=== PATIENT | female | born 1965 | race Caucasian/White ===

== ENCOUNTER 2019-05-06 07:43 | Day surgery (SDC) | payer BC ==
[~2019-05-06 07:43] MED LIST: Lactated Ringers 1,000 ML IV SCH; Lidocaine 1%/Sod Bicarbonate in NS 8.4% 1 ML Syringe IDERM PRN; Sodium Chloride 0.9% 10 ML Syringe FLUSH PRN
[2019-05-06] MEDS ORDERED: Midazolam 1 MG/ML 2 ML SDV ONE (08:16)
[2019-05-06] MEDS ORDERED: fentaNYL 100 MCG/2 ML SDV ONE (08:17)
[2019-05-06] MEDS ORDERED: Propofol 200 MG/20 ML SDV ONE ×2 (09:23→09:35)
[2019-05-06] MEDS ORDERED: Ondansetron 4 MG/2 ML SDV ONE (09:38)
[2019-05-06 10:47] VITALS: BP 120/77
--- NOTE | 2019-05-06 15:26 | OR ---
DATE OF OPERATION: 05/06/2019 SURGEON: Froylan Alanis MD PREOPERATIVE DIAGNOSIS: Mucousy stools. POSTOPERATIVE DIAGNOSIS: 1. No evidence of inflammatory bowel disease. 2. Colon polyp and diverticulosis. OPERATION PERFORMED: Diagnostic colonoscopy with polypectomy. ANESTHESIA: Monitored anesthesia. FINDINGS: She had an excellent bowel prep. I found 1 diminutive polyp in the descending colon. She had some scattered sigmoid diverticulosis. I found no evidence of any inflammatory bowel disease. PATHOLOGY: Descending colon polyp. ESTIMATED BLOOD LOSS: Minimal. COMPLICATIONS: None. DISPOSITION: Stable at the end of the procedure. INDICATION: The patient presented to my office with change in bowel habits. She noted abdominal pain associated with mucous stools. She has no bleeding per rectum. She was offered a diagnostic colonoscopy. She was fully informed of the major risks, benefits, and alternatives. The risks include, but are not limited to perforation of the bowel, bleeding, the risks of anesthesia, the possibility of further surgery, and others. She gave informed consent. DESCRIPTION OF PROCEDURE: The patient was brought to the gastro suite and placed in the left lateral decubitus position. A digital rectal exam was performed. She was given monitored anesthesia. This was unremarkable. I introduced the colonoscope with copious lubrication into the rectum. I advanced the scope keeping the lumen in view at all times with gentle forward pressure. I reached the cecum and documented the cecum photographically. I slowly investigated the mucosa of the colon from the cecum back to the anus in an exam lasting 7 minutes. A thorough, careful examination demonstrated only a single polyp in the descending colon as well as some diverticulosis of the sigmoid. I found no ulcerations, no inflamed mucosa, no evidence of bleeding. At the end of the procedure, the scope was withdrawn. She had no complications and tolerated the procedure well. PLAN: My office will notify her as to the date of her next colonoscopy somewhere between 5 and 10 years. MMODAL /[id number]
== END 2019-05-06 10:45 | disposition home or self-care (01) ==
LOC: JD.SDS 07:43
PROVIDERS: ATTEND Surgery
DX: K63.5 Polyp of colon (principal); K57.30 Diverticulosis of large intestine without perforation or abscess without bleeding; Z80.0 Family history of malignant neoplasm of digestive organs; K58.9 Irritable bowel syndrome, unspecified; I10 Essential (primary) hypertension; E06.3 Autoimmune thyroiditis; E03.9 Hypothyroidism, unspecified; G47.30 Sleep apnea, unspecified; F41.9 Anxiety disorder, unspecified; Z79.899 Other long term (current) drug therapy; Z88.0 Allergy status to penicillin; Z88.5 Allergy status to narcotic agent; Z91.018 Allergy to other foods; Z98.890 Other specified postprocedural states
CPT/HCPCS: 45380; J2250; J2405; J2704; J3010; J7120; 00811

== ENCOUNTER 2019-05-13 11:47 | Emergency (ER) | payer BC ==
[2019-05-13 11:57] VITALS: BP 149/99
[2019-05-13] MEDS ORDERED: Sodium Chloride 0.9% 10 ML Syringe FLUSH PRN (12:34)
[2019-05-13] MEDS ORDERED: Diatrizoate Meglumine/Diatrizoate Sodium 37% 120 ML Bottle PO ONE (12:41)
[2019-05-13] MEDS ORDERED: Iopamidol 612 MG/ML 100 ML Bottle IVPUSH ONE (12:41)
[2019-05-13] MEDS ORDERED: Sodium Chloride 0.9% 10 ML Syringe FLUSH ONE (12:41)
--- NOTE | 2019-05-13 13:18 | EDM.PDOC ---
ED HPI GENERAL MEDICAL PROBLEM - General Chief Complaint: Abdominal Pain Stated Complaint: FEVER,ABDOMINAL PAIN Time Seen by Provider: 05/13/19 12:15 Source of Information: Reports: Patient, Old Records History Limitations: Reports: No Limitations - History of Present Illness INITIAL COMMENTS - FREE TEXT/NARRATIVE: 54-year-old female presents for evaluation and treatment of abdominal pain. she reports she had a routine colonoscopy with Dr. Alanis on May 06 at this hospital. States that it was unremarkable and she had one polyp that was biopsied. She states that it was otherwise an unremarkable colonoscopy. Since then she has had what she describes initially as heartburn. states that it's progressed into her abdomen and she has been experiencing cramping. Pain for the last few days has settled in the left lower quadrant. She reports associated symptoms of fevers and diaphoresis. She denies any nausea, vomiting, diarrhea or any blood in her stools. She has not passed out. She is continuing to pass gas. She denies any urinary symptoms. Patient has a history of IBS. States that she has flares in the past but these normally resolve with passing a bowel movement. Primary care provider is Eveline Aragon. Operative report from Dr. Alanis shows a postop diagnosis of colon polyp and diverticulosis. No evidence for IBD. - Related Data Allergies Allergy/AdvReac Type Severity Reaction Status Date / Time codeine Allergy Rash Verified 05/13/19 11:57 Penicillins Allergy Rash Verified 05/13/19 11:57 tree nut Allergy Diarrhea Verified 05/13/19 11:57 Home Meds: Home Meds Calcium Carbonate [Calcium] 1,500 mg PO DAILY 05/05/19 [History] Estrogens, Conjugated [Premarin Vaginal Crm] 1 dose VAG WESA 05/05/19 [History] LORazepam 0.25 - 0.5 mg PO BEDTIME PRN 05/05/19 [History] Levothyroxine Sodium [Synthroid] 100 mcg PO DAILY 05/05/19 [History] hydroCHLOROthiazide [Hydrochlorothiazide] 12.5 mg PO DAILY 05/05/19 [History] sulfaSALAzine 500 mg PO BID 05/05/19 [History] Levofloxacin [Levaquin] 750 mg PO DAILY #9 tablet 05/13/19 [Rx] metroNIDAZOLE [Flagyl] 500 mg PO Q8H #29 tab 05/13/19 [Rx] Past Medical History HEENT History: Reports: Impaired Vision, Other (See Below) Other HEENT History: dry mouth, excision/resection of mandible, wears glasses Cardiovascular History: Reports: Hypertension Respiratory History: Reports: Sleep Apnea Gastrointestinal History: Reports: Irritable Bowel Syndrome, Other (See Below) Other Gastrointestinal History: excessive flatus Genitourinary History: Reports: UTI, Recurrent FUR WEIGHER History: Reports: Spontaneous , Other (See Below) Other FUR WEIGHER History: vaginal atrophy, post menopausal, vaginal candidiasis, amenorrhea, vaginal dryness and vaginosis, vaginal itching Musculoskeletal History: Reports: Osteoporosis, RA Other Musculoskeletal History: right knee pain, joint pain, right elbow pain, tailbone injury Neurological History: Reports: Other (See Below) Other Neuro History: hand tremor Psychiatric History: Reports: Anxiety, Other (See Below) Other Psychiatric History: insomnia Endocrine/Metabolic History: Reports: Hypothyroidism Other Endocrine/Metabolic History: hashimotos Hematologic History: Reports: None Immunologic History: Reports: None Oncologic (Cancer) History: Reports: None Dermatologic History: Reports: Other (See Below) Other Dermatologic History: skin lesion - Past Surgical History Head Surgeries/Procedures: Reports: None HEENT Surgical History: Reports: Naso-Sinus Surgery, Tonsillectomy Cardiovascular Surgical History: Reports: None Respiratory Surgical History: Reports: None GI Surgical History: Reports: Colonoscopy Female Surgical History: Reports: None Endocrine Surgical History: Reports: Thyroidectomy Other Endocrine Surgeries/Procedures: partial thyroidectomy Neurological Surgical History: Reports: None Musculoskeletal Surgical History: Reports: None Oncologic Surgical History: Reports: None Dermatological Surgical History: Reports: None Social & Family History - Family History Cardiac: Reports: Other (See Below) Other Cardiac Family History: father had atrial valve replaced , rheumatic fever Musculoskeletal: Reports: RA Neurological: Reports: Dementia - Tobacco Use Smoking Status *Q: Never Smoker Second Hand Smoke Exposure: No - Caffeine Use Caffeine Use: Reports: None - Recreational Drug Use Recreational Drug Use: No ED ROS GENERAL - Review of Systems Review Of Systems: See Below Constitutional: Reports: Fever, Diaphoresis GI/Abdominal: Reports: Abdominal Pain (Left lower quadrant), Flatus. Denies: Bloody Stool, Diarrhea, Nausea, Vomiting : Reports: No Symptoms ED EXAM, GI/ABD - Physical Exam Exam: See Below Exam Limited By: No Limitations General Appearance: Alert, WD/WN, No Apparent Distress Throat/Mouth: Normal Inspection, Normal Voice, No Airway Compromise Respiratory/Chest: No Respiratory Distress, Lungs Clear, Normal Breath Sounds Cardiovascular: Normal Peripheral Pulses, Regular Rate, Rhythm, No Murmur GI/Abdominal Exam: Normal Bowel Sounds, Soft, No Distention, Tender (Left lower quadrant). No: Guarding, Rebound Neurological: Alert, Oriented, Normal Cognition Psychiatric: Normal Affect, Normal Mood Skin Exam: Warm, Dry, Normal Color Course - Vital Signs Last Recorded V/S: Last Vital Signs Temp 98.4 F 05/13/19 11:51 Pulse 89 05/13/19 11:51 Resp 14 05/13/19 11:51 BP 149/99 H 05/13/19 11:51 Pulse Ox 100 05/13/19 11:51 - Orders/Labs/Meds Orders: Active Orders 24 hr Category Date Time Status Peripheral IV Care [RC] . DIRECTED Care 05/13/19 12:35 Active Peripheral IV Insertion Adult [OM.PC] Routine Oth 05/13/19 12:34 Ordered Labs: Laboratory Tests 05/13/19 05/13/19 05/13/19 Range/Units 12:00 12:00 14:35 WBC 8.31 (3.98-10.04) K/mm3 RBC 4.48 (3.98-5.22) M/mm3 Hgb 13.8 (11.2-15.7) gm/L Hct 41.1 (34.1-44.9) % MCV 91.7 (79.4-94.8) fl MCH 30.8 (25.6-32.2) pg MCHC 33.6 (32.2-35.5) g/dl RDW Std Deviation 41.8 (36.4-46.3) fL Plt Count 302 (182-369) K/mm3 MPV 8.8 L (9.4-12.3) fl Neutrophils % (Manual) 58 (40-60) % Band Neutrophils % 0 (0-10) % Lymphocytes % (Manual) 30 (20-40) % Atypical Lymphs % 0 % Monocytes % (Manual) 6 (2-10) % Eosinophils % (Manual) 3 (0.7-5.8) % Basophils % (Manual) 2 H (0.1-1.2) Promyelocytes % 1 Platelet Estimate Adequate Plt Morphology Comment Normal RBC Morph Comment Normal Sodium 134 L (136-145) mEq/L Potassium 3.2 L (3.5-5.1) mEq/L Chloride 98 (98-107) mEq/L Carbon Dioxide 29 (21-32) mEq/L Anion Gap 10.2 (5-15) BUN 18 (7-18) mg/dL Creatinine 1.0 (0.55-1.02) mg/dL Est Cr Clr Drug Dosing 60.54 mL/min Estimated GFR (MDRD) 58 (>60) mL/min BUN/Creatinine Ratio 18.0 (14-18) Glucose 90 (74-106) mg/dL Calcium 9.8 (8.5-10.1) mg/dL Total Bilirubin 1.2 H (0.2-1.0) mg/dL AST 12 L (15-37) U/L ALT 25 (14-59) U/L Alkaline Phosphatase 79 (46-116) U/L C-Reactive Protein 7.3 H* (<1.0) mg/dL Total Protein 8.3 H (6.4-8.2) g/dl Albumin 3.9 (3.4-5.0) g/dl Globulin 4.4 gm/dL Albumin/Globulin Ratio 0.9 L (1-2) Urine Color Yellow (Yellow) Urine Appearance Clear (Clear) Urine pH 7.5 (5.0-8.0) Ur Specific [place] 1.010 (1.005-1.030) Urine Protein Negative (Negative) Urine Glucose (UA) Negative (Negative) Urine Ketones Negative (Negative) Urine Occult Blood Negative (Negative) Urine Nitrite Negative (Negative) Urine Bilirubin Negative (Negative) Urine Urobilinogen 0.2 (0.2-1.0) Ur Leukocyte Esterase Negative (Negative) Urine RBC Not seen (0-5) /hpf Urine WBC Not seen (0-5) /hpf Ur Epithelial Cells 0-5 (0-5) /hpf Urine Bacteria Not seen (FEW) /hpf Urine Mucus Not seen (FEW) /hpf Meds: Medications Discontinued Medications Generic Name Dose Route Start Last Admin Trade Name Freq PRN Reason Stop Dose Admin Diatrizoate Meglum/Diatrizoate Sod 90 ml 05/13/19 12:41 05/13/19 13:46 Gastrografin 37% PO 05/13/19 12:42 90 ml ONETIME ONE Administration Iopamidol 100 ml 05/13/19 12:41 05/13/19 13:46 Isovue-300 (61%) IVPUSH 05/13/19 12:42 100 ml ONETIME ONE Administration Levofloxacin 750 mg 05/13/19 14:58 05/13/19 15:08 Levaquin PO 05/13/19 14:59 750 mg NOW STA Administration Metronidazole 500 mg 05/13/19 14:58 05/13/19 15:08 Flagyl PO 05/13/19 14:59 500 mg ONETIME ONE Administration Metronidazole Confirm 05/13/19 15:11 Flagyl Administered 05/13/19 15:12 Dose 500 mg .ROUTE .STK-MED ONE Sodium Chloride 10 ml 05/13/19 12:34 05/13/19 12:53 Saline Flush FLUSH 10 ml ASDIRECTED PRN Administration Keep Vein Open Sodium Chloride 10 ml 05/13/19 12:41 05/13/19 13:47 Saline Flush FLUSH 05/13/19 12:42 10 ml ONETIME ONE Administration - Radiology Interpretation Free Text/Narrative:: CT abdomen and pelvis Technique: Multiple axial sections were obtained from above the dome of the diaphragm inferiorly through the pubic symphysis. Intravenous and oral contrast was utilized. Delayed images were obtained through the bladder. Comparison: No prior CT abdomen or pelvis exam is available. Findings: Small portion of the visualized lung bases show nothing acute. Two adjacent or bilobed cysts are identified within the upper right lobe of the liver measuring approximately 1.0 cm in combined measurement. No additional abnormality is appreciated within the liver. Spleen appears within normal limits. Adrenal glands show no nodule. Pancreas is within normal limits. Kidneys show symmetric contrast enhancement with no hydronephrosis or mass. Aorta shows mild atherosclerotic calcification without aneurysm. No retroperitoneal adenopathy is seen. Appendix is seen which is normal. Inflammatory change is noted around the left side of the colon. This inflammatory change is centered adjacent to a diverticuli. No free fluid collections of abscess are seen. Other sigmoid diverticuli are seen. No free air is seen. No pelvic mass or adenopathy is appreciated. Gallbladder contains no calcified gallstones. No bowel dilatation is seen. Impression: 1. Inflammatory change around a portion of the descending colon. Uncertain if this represents change from recent colonoscopy or represents change from diverticulitis as a diverticula is seen within this inflammatory change. Latter is felt most likely. Other diverticuli are seen within the sigmoid colon without additional inflammatory change. 2. Incidental cysts within the liver. 3. No additional abnormality is appreciated. - Re-Assessments/Exams Free Text/Narrative Re-Assessment/Exam: 05/13/19 14:48 Reviewed the labs and imaging with the patient. This is uncomplicated case of diverticulitis. She can be treated as an outpatient. the patient feels comfortable with this. I will prescribe her some Levaquin and Flagyl. Will discharge her home. Offered pain medication she declined. Recommend follow-up clinic. Discharge instructions as documented. Departure - Departure Time of Disposition: 15:02 Disposition: Home, Self-Care 01 Condition: Fair Clinical Impression: Diverticulitis - Discharge Information *PRESCRIPTION DRUG MONITORING PROGRAM REVIEWED*: No *COPY OF PRESCRIPTION DRUG MONITORING REPORT IN PATIENT SHAHLA: No Prescriptions: Levofloxacin [Levaquin] 750 mg PO DAILY #9 tablet metroNIDAZOLE [Flagyl] 500 mg PO Q8H #29 tab Instructions: Diverticulitis, [id number] Referrals: Eveline Aragon MEDIA INTERN [Primary Care Provider] - Forms: ED Department Discharge Additional Instructions: Take the antibiotic as prescribed. Levaquin 1 tab daily. You may start this medication tomorrow as you were given a dose here in the ED. Flagyl 1 tab every 8 hours. Both these medications are for 10 days. Follow-up with your primary care provider next week for recheck of your symptoms. Recommend clear fluids and a bland diet. Kidder diet recommendations include yogurt, bananas, soup broth, applesauce, toast etc. Please return to the ER for symptoms change or worsen. - My Orders Last 24 Hours: My Active Orders 05/13/19 12:34 Peripheral IV Insertion Adult [OM.PC] Routine 05/13/19 12:35 Peripheral IV Care [RC] . DIRECTED - Assessment/Plan Last 24 Hours: My Active Orders 05/13/19 12:34 Peripheral IV Insertion Adult [OM.PC] Routine 05/13/19 12:35 Peripheral IV Care [RC] . DIRECTED
--- NOTE | 2019-05-13 14:35 | CT ---
CT abdomen and pelvis Technique: Multiple axial sections were obtained from above the dome of the diaphragm inferiorly through the pubic symphysis. Intravenous and oral contrast was utilized. Delayed images were obtained through the bladder. Comparison: No prior CT abdomen or pelvis exam is available. Findings: Small portion of the visualized lung bases show nothing acute. Two adjacent or bilobed cysts are identified within the upper right lobe of the liver measuring approximately 1.0 cm in combined measurement. No additional abnormality is appreciated within the liver. Spleen appears within normal limits. Adrenal glands show no nodule. Pancreas is within normal limits. Kidneys show symmetric contrast enhancement with no hydronephrosis or mass. Aorta shows mild atherosclerotic calcification without aneurysm. No retroperitoneal adenopathy is seen. Appendix is seen which is normal. Inflammatory change is noted around the left side of the colon. This inflammatory change is centered adjacent to a diverticuli. No free fluid collections of abscess are seen. Other sigmoid diverticuli are seen. No free air is seen. No pelvic mass or adenopathy is appreciated. Gallbladder contains no calcified gallstones. No bowel dilatation is seen. Impression: 1. Inflammatory change around a portion of the descending colon. Uncertain if this represents change from recent colonoscopy or represents change from diverticulitis as a diverticula is seen within this inflammatory change. Latter is felt most likely. Other diverticuli are seen within the sigmoid colon without additional inflammatory change. 2. Incidental cysts within the liver. 3. No additional abnormality is appreciated. Diagnostic code #3
[2019-05-13] MEDS ORDERED: Levofloxacin 750 MG Tab PO STA (14:58)
[2019-05-13] MEDS ORDERED: metroNIDAZOLE 500 MG Tab PO ONE (14:58)
[2019-05-13] MEDS ORDERED: metroNIDAZOLE 500 MG Tab ONE (15:11)
== END 2019-05-13 15:22 | disposition home or self-care (01) ==
LOC: JD.ED 11:47
DX: K57.32 Diverticulitis of large intestine without perforation or abscess without bleeding (principal); I10 Essential (primary) hypertension; F41.9 Anxiety disorder, unspecified; E03.9 Hypothyroidism, unspecified; Z88.5 Allergy status to narcotic agent; Z88.0 Allergy status to penicillin; Z91.09 Other allergy status, other than to drugs and biological substances; Z79.899 Other long term (current) drug therapy
CPT/HCPCS: 36415; 74177; 80053; 81001; 85007; 85027; 86140; 99284; A9270; Q9963; Q9967

== ENCOUNTER 2019-05-14 00:44 | Emergency (ER) | payer BC ==
[2019-05-14 00:53] VITALS: BP 146/92
--- NOTE | 2019-05-14 00:59 | EDM.PDOC ---
ED HPI GENERAL MEDICAL PROBLEM - General Chief Complaint: General Stated Complaint: POSSIBLE ALLERGIC REACTION HERE YESTERDAY Time Seen by Provider: 05/14/19 00:58 Source of Information: Reports: Patient History Limitations: Reports: No Limitations - History of Present Illness INITIAL COMMENTS - FREE TEXT/NARRATIVE: 54-year-old female presents to the ED for evaluation of spinal allergy/adverse effects of medication. She was seen through the ED yesterday and CTs demonstrated a early diverticulitis of the superior descending colon. Of note the patient has undergone recent colonoscopy on May 06 with one polyp resected. There were numerous diverticular reported on the colonoscopy examination. Patient has no history of diverticulitis in the past. Had a normal white blood cell count but did have an elevated CRP at 7.3. She was thus started on metronidazole 500 mg 3 times a day and Levaquin 500 mg by mouth. She reports that she developed pressure in her throat with increased phlegm and a feeling of swelling of the uvula and the back of her throat. This created anxiety and she called the [place] ambulance personnel [place] They identified normal vital signs and with reassurance her vital signs improved. I she was tachycardic and mildly hypotensive on initial assessment. She also had diffuse numbness and tingling in her fingers and toes unclear if this is hyperventilation syndrome or peripheral neuropathy symptoms that sometimes can be associated with metronidazole use. She did have significant nausea when taking the medication yesterday as well. She has no rashes and I do not feel her current symptomatology is related to Levaquin. She may well have adverse effects to metronidazole. Sensory is reluctant to take any more medication in this regard I will change it to clindamycin 300 mg 3 times a day for 6 days and she will discontinue the metronidazole. Onset: Sudden Onset Date: 05/13/19 Onset Time: 22:30 Duration: Minutes: Location: Reports: Neck (Throat pressure discomfort like he was closing in with increased phlegm.), Other (Views numbness and tingling in hands toes and fingers.) Quality: Reports: Pressure Severity: Moderate Improves with: Reports: Other ([place] ambulance crew.) Worsens with: Reports: None Context: Reports: Other (Possible adverse effects of medication started yesterday I metronidazole 500 mg 3 times a day and Levaquin 500 milligrams once daily for diverticulitis identified on CT exam. I reviewed the CT and I agree with the diagnosis.). Denies: Activity, Exercise, Lifting, Sick Contact, Trauma Associated Symptoms: Reports: Chest Pain, Loss of Appetite, Malaise, Nausea/ Vomiting, Shortness of Breath, Weakness. Denies: Confusion, Cough, cough w sputum, Diaphoresis, Fever/Chills, Headaches, Rash, Seizure (Mild nausea no vomiting), Syncope Treatments H[employer] MACHINE: Reports: Other (see below) (Earlier tonight which seems to have resolved a good portion of her symptoms.) - Related Data Allergies Allergy/AdvReac Type Severity Reaction Status Date / Time codeine Allergy Rash Verified 05/14/19 00:53 Penicillins Allergy Rash Verified 05/14/19 00:53 tree nut Allergy Diarrhea Verified 05/14/19 00:53 Home Meds: Home Meds Calcium Carbonate [Calcium] 1,500 mg PO DAILY 05/05/19 [History] Estrogens, Conjugated [Premarin Vaginal Crm] 1 dose VAG WESA 05/05/19 [History] LORazepam 0.25 - 0.5 mg PO BEDTIME PRN 05/05/19 [History] Levothyroxine Sodium [Synthroid] 100 mcg PO DAILY 05/05/19 [History] hydroCHLOROthiazide [Hydrochlorothiazide] 12.5 mg PO DAILY 05/05/19 [History] sulfaSALAzine 500 mg PO BID 05/05/19 [History] Levofloxacin [Levaquin] 750 mg PO DAILY #9 tablet 05/13/19 [Rx] metroNIDAZOLE [Flagyl] 500 mg PO Q8H #29 tab 05/13/19 [Rx] Clindamycin HCl 300 mg PO TID #18 capsule 05/14/19 [Rx] Past Medical History HEENT History: Reports: Impaired Vision, Other (See Below) Other HEENT History: dry mouth, excision/resection of mandible, wears glasses Cardiovascular History: Reports: Hypertension Respiratory History: Reports: Sleep Apnea Gastrointestinal History: Reports: Irritable Bowel Syndrome, Other (See Below) Other Gastrointestinal History: excessive flatus Genitourinary History: Reports: UTI, Recurrent [employer]EVEL CLINICIAN History: Reports: Spontaneous , Other (See Below) Other [employer] LEVEL CLINICIAN History: vaginal atrophy, post menopausal, vaginal candidiasis, amenorrhea, vaginal dryness and vaginosis, vaginal itching Musculoskeletal History: Reports: Osteoporosis, RA Other Musculoskeletal History: right knee pain, joint pain, right elbow pain, tailbone injury Neurological History: Reports: Other (See Below) Other Neuro History: hand tremor Psychiatric History: Reports: Anxiety, Other (See Below) Other Psychiatric History: insomnia Endocrine/Metabolic History: Reports: Hypothyroidism Other Endocrine/Metabolic History: hashimotos Hematologic History: Reports: None Immunologic History: Reports: None Oncologic (Cancer) History: Reports: None Dermatologic History: Reports: Other (See Below) Other Dermatologic History: skin lesion - Past Surgical History Head Surgeries/Procedures: Reports: None HEENT Surgical History: Reports: Naso-Sinus Surgery, Tonsillectomy Cardiovascular Surgical History: Reports: None Respiratory Surgical History: Reports: None GI Surgical History: Reports: Colonoscopy Female Surgical History: Reports: None Endocrine Surgical History: Reports: Thyroidectomy Other Endocrine Surgeries/Procedures: partial thyroidectomy Neurological Surgical History: Reports: None Musculoskeletal Surgical History: Reports: None Oncologic Surgical History: Reports: None Dermatological Surgical History: Reports: None Social & Family History - Family History Cardiac: Reports: Other (See Below) Other Cardiac Family History: father had atrial valve replaced , rheumatic fever Musculoskeletal: Reports: RA Neurological: Reports: Dementia - Tobacco Use Smoking Status *Q: Never Smoker Second Hand Smoke Exposure: No - Caffeine Use Caffeine Use: Reports: None - Living Situation & Occupation Living situation: Reports: Occupation: Employed ED ROS GENERAL - Review of Systems Review Of Systems: See Below Constitutional: Reports: Malaise, Weakness, Fatigue, Decreased Appetite. Denies : Fever, Chills HEENT: Reports: Throat Pain, Throat Swelling (Throat pressure swelling earlier tonight that precipitated) Respiratory: Reports: Shortness of Breath ( hyperventilation syndrome I believe by history.). Denies: Wheezing, Pleuritic Chest Pain, Cough, Sputum Cardiovascular: Reports: Lightheadedness. Denies: Chest Pain, Blood Pressure Problem, Claudication, Dyspnea on Exertion, Edema (Mild), Orthopnea, Palpitations Endocrine: Reports: Fatigue GI/Abdominal: Reports: Abdominal Pain (Left upper quadrant.), Decreased Appetite , Nausea : Reports: No Symptoms Musculoskeletal: Reports: Other (Has diffuse joint pain particularly hands knees and elbows. She has confirmed rheumatoid arthritis and is followed by rheumatology in [place]. Recently trialed on sulfasalazine but after 4 days developed severe gastritis and abdominal pain and the medication was discontinued only a few days ago.) Skin: Reports: No Symptoms Neurological: Reports: Paresthesia (Paresthesias in arms hands and feet earlier tonight. Questioning whether this was hyperventilation syndrome or perhaps neuropathic syndromes from metronidazole.) Psychiatric: Reports: Anxiety Hematologic/Lymphatic: Reports: No Symptoms Immunologic: Reports: No Symptoms ED EXAM, GENERAL - Physical Exam Exam: See Below Exam Limited By: No Limitations General Appearance: Alert, WD/WN, Anxious, Mild Distress, Other (Vital signs revealed elevated blood pressure 146/92. Pulse ox 100% with respiratory rate of 16. Afebrile. Heart rate of 95/m.) Eye Exam: Bilateral Eye: Normal Inspection Ear Exam: Bilateral Ear: Canal Normal, TM normal Throat/Mouth: Normal Inspection, Normal Lips, Normal Teeth, Normal Oropharynx, Other (Currently no erythema swelling of the posterior pharynx. The uvula is normal and no swelling in the floor the mouth.) Head: Atraumatic, Normocephalic Neck: No: Normal Inspection, Supple, Non-Tender, Full Range of Motion, Lymphadenopathy (L), Lymphadenopathy (R) Respiratory/Chest: No Respiratory Distress, Lungs Clear, Normal Breath Sounds, Chest Non-Tender Cardiovascular: Normal Peripheral Pulses, Regular Rate, Rhythm, No Edema, No Gallop, No Murmur, No Rub Peripheral Pulses: 3+: Posterior Tibial (L), Posterior Tibial (R), Dorsalis Pedis (L), Dorsalis Pedis (R) GI/Abdominal: Normal Bowel Sounds, Soft, Tender (Mild tenderness in the epigastrium as well.). No: Guarding (Mildly tender to deep palpation left upper quadrant in the abdomen.), Rigid, Rebound Back Exam: Normal Inspection, Full Range of Motion. No: CVA Tenderness (L), CVA Tenderness (R) Extremities: Normal Inspection, Normal Range of Motion, Non-Tender Neurological: Alert, Oriented, CN II-XII Intact, Normal Cognition Psychiatric: Normal Affect, Normal Mood Skin Exam: Warm, Dry, Intact, Normal Color, No Rash Course - Vital Signs Last Recorded V/S: Last Vital Signs Temp 36.2 C 05/14/19 00:50 Pulse 95 05/14/19 00:50 Resp 16 05/14/19 00:50 BP 146/92 H 05/14/19 00:50 Pulse Ox 100 05/14/19 00:50 - Radiology Interpretation Free Text/Narrative:: 54-year-old female presents to the ED for evaluation of subjective sense swelling of her throat with feeling of closure and extra phlegm production. This was associated with the development of numbness and tingling hands fingers toes and feet. Most likely this represents an anxiety reaction. However she reported being quite nauseated after taking metronidazole yesterday in the ED. She doesn't know for sure she's ever been on this medication before. She has taken a lorazepam 0.5 mg. Prior to coming to the ED. Due to her symptomatology the [place] ambulance was called as they live in [place]. They assessed her and felt that her vitals were normal and provided reassurance. However due to her symptomatology and possible adverse effect to medication they elected to come to the ED. At the time she was seen in the ED she was feeling improved. I suspect a lorazepam may have relieved a good portion of her anxiety. I could find no evidence of significant swelling of her throat, uvula or floor of the mouth to suggest an allergic response. Metronidazole can cause peripheral neuropathy symptoms .Patient was quite reluctant to take the medication in the future due to nausea and adverse effects. I will therefore discontinue it and use clindamycin 300 mg 3 times a day for [address] Continue the Levaquin 500 mg once daily as well. Advised if she felt any further throat swelling she could take Benadryl 50 mg by mouth that she has the liquid form of it at home and would need 20 mils. Patient and reassured. Of note I did review her labs and CT scan performed yesterday and I agree with the diagnosis of early diverticulitis left upper descending colon. Her CRP was 7.3 indicating early infective process but certainly in a boxer indicated. Patient reassured and advised that she does indeed need both antibiotics to clear up infective process. May use Benadryl if she feels any further swelling of her throat although I suspect she may have developed a panic attack that caused most of her symptoms. Departure - Departure Time of Disposition: 01:12 Disposition: Home, Self-Care 01 Condition: Fair Clinical Impression: Adverse drug interaction with prescription medication, Anxiety attack - Discharge Information *PRESCRIPTION DRUG MONITORING PROGRAM REVIEWED*: Not Applicable *COPY OF PRESCRIPTION DRUG MONITORING REPORT IN PATIENT SHAHLA: Not Applicable Prescriptions: Clindamycin HCl 300 mg PO TID #18 capsule Instructions: Antibiotic Medicine, Adult Referrals: Eveline Aragon RECORDS OFFICER [Primary Care Provider] - Forms: ED Department Discharge Additional Instructions: Evaluation the emergency room this morning in regards to suspect adverse effect to medication prescribed yesterday. I suspect that your symptoms that you experienced with throat pressure discomfort and extra mucus production and associated numbness and tingling in your extremities was a adverse effect of metronidazole(Flagyl). Therefore suggest no further use of this medication ever. Replace with clindamycin 300 mg tablet 3 times daily for the next 6 days due to diagnosis of diverticulitis on CT scan yesterday. I had a look at the CT scan and I agree with the radiologist that there is a early diverticulitis present in the left upper descending: Left side of your abdomen. The inflammatory markers which was called a CRP was elevated at 7.3 indicating a significant infection is present. Normal CRP is less than 1. Therefore I do believe it is important to continue Levaquin 500 mg once daily with antibiotic clindamycin 300 mg 3 times a day for 6 days to clear up diverticulitis. He can fill this prescription later this morning in [place].
== END 2019-05-14 01:25 | disposition home or self-care (01) ==
LOC: JD.ED 00:44
DX: F41.9 Anxiety disorder, unspecified (principal); T37.8X5A Adverse effect of other specified systemic anti-infectives and antiparasitics, initial encounter; I10 Essential (primary) hypertension; E03.9 Hypothyroidism, unspecified; Z88.0 Allergy status to penicillin; Z88.5 Allergy status to narcotic agent; Z79.899 Other long term (current) drug therapy; Z91.018 Allergy to other foods
CPT/HCPCS: 99283